=== PATIENT | female | born 1985 | race Hispanic/Latino ===

== ENCOUNTER 2023-09-12 11:33 | Outpatient (CLI) | payer OTHER ==
[2023-09-12 13:08] LABS: #Eosinphils 0.1 10x3/uL (0.0-0.5); #Monocytes 0.4 10x3/uL (0.0-1.1); #Neutrophils 4.5 10x3/uL (1.5-8.4); %Basophils 0.4 % (0.0-2.0); %Eosinophils 1.5 % (0.0-6.0); %Lymphocytes 34.7 % (18.0-47.0); %Monocytes 5.4 % (0.0-10.0); %Neutrophils 57.7 % (40.0-75.0); Hematocrit 37.9 % (34.9-44.5); Hemoglobin 12.9 g/dL (12.0-15.5); Mean Corpuscular Hemoglobin 30.1 pg (27.0-33.0); Mean Corpuscular Volume 88.6 fl (81.6-98.3); Mean Platelet Volume 11.6 fl (7.4-10.4); Platelet Count 266 10x3/uL (150-450); RBC Distribution Width 12.7 % (11.5-14.5); Red Blood Cell (RBC) Count 4.28 10x6/uL (3.90-5.03); White Blood Cell (WBC) Count 7.8 10x3/uL (3.5-10.5)
[2023-09-12 13:25] LABS: Anion Gap 13 mmol/L (10-20); BUN (Urea Nitrogen) 9 mg/dL (7.0-18.7); Calc. Creatinine Clearance 0 mL/min (70-130); Calcium 9.7 mg/dL (7.8-10.44); Carbon Dioxide 24 mmol/L (22-29); Chloride 105 mmol/L (98-107); Estimated GFR 103; Glucose 90 mg/dL (70-105); Potassium 4.4 mmol/L (3.5-5.1); Sodium 138 mmol/L (136-145)
[2023-09-12 13:26] LABS: BHCG - Serum Negative (NEGATIVE); Pregs Control Background? CLEAR/WHITE (CLR/WHITE); Pregs Control Bar Appear? YES (CONTROL BAR)
== END 2023-09-12 11:34 | disposition home or self-care (01) ==
LOC: LABBT 11:33
PROVIDERS: ATTEND Surgery
DX: Z01.812 Encounter for preprocedural laboratory examination (principal); K43.9 Ventral hernia without obstruction or gangrene
CPT/HCPCS: 80048; 84703; 85025

== ENCOUNTER 2023-09-17 12:04 | Day surgery (SDC) | payer OTHER ==
[2023-09-12 12:32] VITALS: BMI 28.5
[2023-09-17] MEDS ORDERED: EPINEPHrine 1 MG/ML VIAL ONE (13:18)
[2023-09-17] MEDS ORDERED: Bupivacaine 0.25% HCL 30 ML VIAL ONE (13:18)
[2023-09-17] MEDS ORDERED: PROPOFOL 20 ML ONE (14:34)
[2023-09-17] MEDS ORDERED: Rocuronium Bromide 10 MG/ML (10ML VIAL) ONE ×2 (14:34→16:09)
[2023-09-17] MEDS ORDERED: Dexamethasone 4 mg/ml Vial ONE ×2 (14:35→16:40)
[2023-09-17] MEDS ORDERED: Ondansetron PF 4 MG/2 ML Vial ONE ×2 (14:35→16:09)
[2023-09-17] MEDS ORDERED: fentaNYL PF 100 MCG/2 ML SYRINGE ONE (14:35)
[2023-09-17] MEDS ORDERED: CEFAZOLIN 2 GM VIAL ONE (15:46)
[2023-09-17] MEDS ORDERED: Sodium Chloride 0.9% 100 ML ONE (15:46)
[2023-09-17] MEDS ORDERED: PROPOFOL 200 MG/20 ML VIAL ONE (16:09)
[2023-09-17] MEDS ORDERED: NEOSTIGMINE 3 MG/3 ML SYR 3 MG/3 ML SYRINGE ONE ×2 (16:09→16:53)
[2023-09-17] MEDS ORDERED: Dexamethasone 20 MG/5 ML VIAL ONE (16:09)
[2023-09-17] MEDS ORDERED: Glycopyrrolate 0.2 MG/ML 5 ML SYRINGE ONE ×2 (16:09→16:53)
[2023-09-17] MEDS ORDERED: Lidocaine 1% PF 5 ML VIAL ONE (16:09)
[2023-09-17] MEDS ORDERED: fentaNYL 50 mcg/mL 1 mL Vial ONE ×5 (17:02→17:53)
[2023-09-17] MEDS ORDERED: HYDROcodone/Acetaminophen 5/325 mg Tablet ONE (18:25)
== END 2023-09-17 19:40 | disposition home or self-care (01) ==
LOC: SDC 12:04
PROVIDERS: ATTEND Surgery
PROC: 0WUF4JZ Supplement Abdominal Wall with Synthetic Substitute, Percutaneous Endoscopic Approach (ICD-10-PCS; principal; 2023-09-17)
PROC: 8E0W4CZ Robotic Assisted Procedure of Trunk Region, Percutaneous Endoscopic Approach (ICD-10-PCS; principal; 2023-09-17)
DX: K43.9 Ventral hernia without obstruction or gangrene (principal); Z90.49 Acquired absence of other specified parts of digestive tract; Z98.51 Tubal ligation status
CPT/HCPCS: A4314; C1781; J0171; J1100; J2405; J2704; J3010; J3490; S0020